=== PATIENT | male | born 1960 | race Caucasian/White ===

== ENCOUNTER 2021-04-05 13:36 | Inpatient (IN) | payer OTHER, SELFPAY ==
--- NOTE | ~2021-04-05 | XR_ITS ---
EXAMINATION: XR abdomen/kub 1V EXAM DATE: 04/06/2021 05:42 INDICATION: Small-bowel obstruction, nasogastric tube. TECHNIQUE: Frontal projection(s) of the abdomen for interpretation. Comparison is made to prior exami nation from 04/05/2021. FINDINGS: Feeding tube tip projects over gastric bubble, side-port at the gastroesophageal junction. This could be safely advanced 5 cm. Some contrast within the bladder from yesterday's CT. Several mil dly dilated air-filled small bowel loops, low-grade obstruction or ileus. There is no organomegaly. T here are no osseous abnormalities identified. Lung bases unremarkable. IMPRESSION: 1. Several mildly dilated small bowel loops, ileus or partial obstruction. 2. Feeding tube tip in stomach, but could be safely advanced 5 cm. Reviewed, dictated and finalized at location A.
--- NOTE | ~2021-04-05 | XR_ITS ---
XR abdomen NG/feed tube insert DATE: 04/05/2021 21:37 INDICATION: Nasogastric tube insertion. Partial small bowel obstruction. TECHNIQUE: Portable upright AP view of the upper abdomen COMPARISON: None FINDINGS: There is a nasogastric tube in the body of the stomach, proximal side-port approximately 2. 3 cm distal to the diaphragmatic hiatus. Bilateral renal excretion of contrast material. IMPRESSION: NG tube in body of stomach, proximal port 2.3 cm distal to the diaphragmatic hiatus Reviewed, dictated and finalized at [facility]. Reviewed, dictated and finalized at location A. IMPRESSION: NG tube in body of stomach, proximal port 2.3 cm distal to the diap hragmatic hiatus
--- NOTE | ~2021-04-05 | CT_ITS ---
EXAMINATION: CT abdomen pelvis w con DATE: 04/05/2021 19:41 INDICATION: Generalized abdominal pain since yesterday. TECHNIQUE: Computed tomography (CT) of the abdomen and pelvis was performed with 100 cc Omnipaque 350 intravenous contrast. Automated exposure control and iterative reconstruction technique were employe d. Exam dose: 663.85 mGy-cm total exam DLP. COMPARISON: None. FINDINGS: There is minimal dependent atelectasis at the lower lobes. Normal heart size. No pericardia l or pleural effusion. Very small sliding hiatal hernia. Nonspecific 1.5 cm anterior medial segment left hepatic hypoattenuating lesion; diffusion diagnosis i ncludes hemangioma, less likely cysts or malignancy. The liver is otherwise unremarkable. The gallbladder is present. Cannot exclude small dependent gallstone or gallstones. No gallbladder wa ll thickening or pericholecystic fluid or fat stranding. No bile duct or pancreatic duct dilatation. No pancreatic mass lesion or calcification. The adrenal glands are normal. 9 mm exophytic upper pole right renal cyst. 4 mm mid right renal cyst. 3.5 mm nonobstructing upper pole right renal calculus. No left urinary tract calculus or right ureteral calculus or hydronephrosis of either kidney. Prostate calcifications. The urinary bladder is unremarkable. Normal caliber of the abdominal aorta. No intraperitoneal or retroperitoneal or pelvic mass lesion or adenopathy or ascites. There is circumferential soft tissue thickening of the distal gastric antrum with luminal narrowing. Gastric carcinoma is not excluded. Consider upper gastrointestinal series or upper endoscopy. There is small bowel dilatation, measuring up to 4.2 cm diameter, with multiple small bowel air-fluid levels. There is a transition zone in the left lower quadrant. There are multiple diverticula of left and right colon; no CT evidence of diverticulitis. There is evidence of appendectomy. IMPRESSION: Partial small bowel obstruction, left lower quadrant, with dilated small bowel up to 4.2 cm diameter, multiple small bowel air-fluid levels Circumferential soft tissue thickening of the distal gastric antrum; gastric carcinoma is not exclude d. Consider upper gastrointestinal series or upper endoscopy Diverticulosis of the colon; no CT evidence of diverticulitis 1.5 cm in nonspecific medial segment left hepatic lesion Right renal cysts 3.5 mm nonobstructing upper pole right renal calculus Reviewed, dictated and finalized at [facility]. Reviewed, dictated and finalized at location A. IMPRESSION: Partial small bowel obstruction, left lower quadrant, with dilated small bowel up to 4.2 cm diameter, multiple small bowel air-fluid levels Circumferential soft tissue thickening of the distal gastric antrum; gastric ca rcinoma is not excluded. Consider upper gastrointestinal series or upper endosc opy Diverticulosis of the colon; no CT evidence of diverticulitis 1.5 cm in nonspecific medial segment left hepatic lesion Right renal cysts 3.5 mm nonobstructing upper pole right renal calculus
--- NOTE | ~2021-04-05 | XR_ITS ---
EXAMINATION: XR sm bowel follow through WS EXAM DATE: 04/06/2021 14:41 INDICATION: Dilated small bowel, obstruction on CT. Patient had a bowel movement . TECHNIQUE: Academic Interventionist radiograph was acquired. Omnipaque/water soluble solution administered for small santino wel exam performed by radiologist Tigre Ho M.D.. Pulsed dose reduction fluoroscopy was used with fluoroscopic time of 0.0. A total of 9 images obtained for the exam. Correlation is made to CT abdom en pelvis from 04/05. FINDINGS: There is a large duodenal diverticulum. Ileal and jejunal fold patterns are normal. There is no small bowel wall thickening or mass effect displacing small bowel. On some of the images some t emporary dilation of small bowel loops, probably mild ileus. There are no intraluminal filling defect s identified. Contrast reached the colon on the 1.5 hour image, contrast was seen to the sigmoid. IMPRESSION: 1. Several transient mildly dilated small bowel loops probably ileus. Normal transit time 1.5 hours. 2. Large duodenal diverticulum. Reviewed, dictated and finalized at location A. IMPRESSION: 1. Several transient mildly dilated small bowel loops probably ileus. Normal tr ansit time 1.5 hours. 2. Large duodenal diverticulum.
[2021-04-05 14:00] VITALS: BP 136/97; PULSE 106; RESP 12; TEMP 36.6; O2SAT 99
[2021-04-05 14:24] LABS: Basophils Percent Auto 0.2 % (0.2-1.2); Eosinophils Percent Auto 0.1 % (0-4.4); Immature Granulocyte Absolute 0.04 K/mm3 (0.00-0.031); Immature Granulocyte Percent A 0.3 % (0-0.5); Lymphocytes Absolute Auto 0.82 K/mm3 (0.9-3.2); Mean Corpuscular HGB Conc 32.6 g/dl (32-36); Mean Corpuscular Hemoglobin 27.3 pg (26-34); Mean Corpuscular Volume 83.8 fl (80-100); Mean Platelet Volume 9.6 fl (7.4-10.4); Monocytes Absolute Auto 0.8 K/mm3 (0.1-0.6); Monocytes Percent Auto 6.4 % (2.6-8.5); Platelet Count Result 316 k/mm3 (150-375); Red Blood Count 5.49 M/mm3 (4.6-6.20); Red Cell Distribution Width 14.4 % (11.5-14.5); White Blood Count 11.7 K/mm3 (4.5-10.0)
[2021-04-05 14:37] LABS: Add Urine Microscopic? YES; Appearance Urine Clear (Clear); Bilirubin Urine Negative (Negative); Blood Urine Negative (Negative); Color Urine Yellow (Yellow); Glucose Urine UA Negative (Negative); Ketones Urine Trace mg/dL (Negative); Leukocyte Esterase Ur Negative LEU/UL (Negative); Nitrate Urine Negative (Negative); Protein Urine 2+ mg/dL (Negative); RBC Urine 0-2 /hpf (0-2); Specific Grav Ur 1.028 (1.001-1.035); Urobilinogen Urine Negative mg/dL (<2.0); WBC Urine 0-3 /hpf
[2021-04-05 15:09] LABS: Alanine Aminotransferase 26 U/L (4-50); Alkaline Phosphatase 139 U/L (38-126); Anion Gap 13 mmol/L (8-16); Aspartate Amino Transferase 39 U/L (17-59); Bilirubin,Total 0.6 mg/dL (0.2-1.3); Blood Urea Nitrogen 21 mg/dL (9-20); Carbon Dioxide 25 mmol/L (22-30); Chloride 100 mmol/L (98-107); Estimated CRCL calculation 65 ml/min; Estimated Glomerular Filt Rate > 60; Glucose 124 mg/dL (65-110); Lipase 95 U/L (23-300); Potassium 4.6 mmol/L (3.4-5.0); Sodium 138 mmol/L (137-145)
[2021-04-05 16:44] VITALS: BP 141/97; PULSE 84; RESP 18; TEMP 36.5; O2SAT 99
[2021-04-05 17:28] VITALS: PULSE 95; RESP 18; O2SAT 100
--- NOTE | 2021-04-05 17:28 | ED.ABDPAIN ---
HPI - Abdominal Pain General Chief Complaint: Abdominal Pain Stated Complaint: abd pain Time Seen by Provider: 04/05/21 17:27 Source: patient Mode of arrival: ambulatory Limitations: no limitations History of Present Illness HPI narrative: Patient is a 61 yo male with a history of questionable Crohn's disease who presents for evaluation of LLQ abdominal pain. Pain is severe in nature located mostly in his left lower abdomen. He reports nausea with episodes of nonbilious, non bloody emesis earlier this morning. He also reports some loose stool and blood present in the stool which is bright red in nature. Pt has felt bloated. He denies fever or chills. Denies chest pain or dyspnea. Patient reports history of bowel resection and obstruction in the past (). Patient used to follow with Dr. Lr, but has not seen anyone since 2013. Related Data Home Medications Medication Instructions Recorded Confirmed No Home Medications 04/05/21 04/05/21 Allergies Allergy/AdvReac Type Severity Reaction Status Date / Time No Known Drug Allergies Allergy Unknown Verified 04/05/21 17:33 Review of Systems Review of Systems: CONSTITUTIONAL: Denies fever, chills, or sweats. EYES: Denies visual changes, redness, or discharge. ENT: Denies rhinorrhea, congestion, sore throat, or otalgia. CARDIOVASCULAR: Denies chest pain RESPIRATORY: Denies cough or dyspnea. GASTROINTESTINAL: Reports abdominal pain, nausea and vomiting, also reports diarrhea GENITOURINARY: Denies dysuria or hematuria. SKIN: Denies rash or itching. MUSCULOSKELETAL: Denies back pain, joint pain, or myalgia. NEUROLOGIC: Denies headache, numbness, or weakness. [facility] Past Medical History Medical History (Updated 04/05/21 @ 20:53 by Lisy Schwartz MD) Crohn's disease Epistaxis Surgical History Surgical History History of bowel resection Family History Family History Mother Hypertension Family history of chronic obstructive pulmonary disease Father Family history of alcoholism Grandparent Cerebrovascular accident Family history of coronary artery disease Other Family history of lung cancer Family history of throat cancer Social History Social History Smoking status: Never smoker Alcohol intake: current Exam Narrative: GENERAL: Awake, alert, conversant HEAD: Normocephalic, atraumatic. EYES: PERRLA and EOMI. ENT: Nares clear, no rhinorrhea or epistaxis. Mucous membranes moist. NECK: Supple. CHEST: No respiratory distress, breathing even and non labored HEART: Regular rate, sinus rhythm ABDOMEN:Mild distension, bowel sounds decreased, tender in LLQ without rebound or guarding EXTREMITIES: Normal range of motion. No edema. SKIN: Warm, dry, no rash. NEURO:No focal deficits. Alert and oriented x3 Course Vital Signs Vital signs: Vital Signs Temperature 36.6 C 04/05/21 14:00 Pulse Rate 106 H 04/05/21 14:00 Respiratory Rate 12 04/05/21 14:00 Blood Pressure 136/97 H 04/05/21 14:00 Pulse Oximetry 99 04/05/21 14:00 Temperature 36.5 C 04/05/21 16:44 Pulse Rate 91 04/05/21 18:48 Respiratory Rate 15 04/05/21 18:48 Blood Pressure 149/97 H 04/05/21 18:48 Pulse Oximetry 100 04/05/21 18:48 MDM - Abdominal Pain MDM Narrative Medical decision making narrative: Patient presenting for evaluation of abdominal distention, pain and nausea as well as vomiting. At the time of assessment, patient is mildly tachycardic. Patient with mild distention and left lower quadrant tenderness on exam. IV access obtained and labs are drawn. Patient with a leukocytosis without lactic acidosis. No anemia. No significant electrolyte derangement. CT scan consistent with partial small bowel obstruction with nonspecific thickening in the gastric antrum. I did discuss the
[2021-04-05] MEDS: ONDANSETRON INJ 4 MG/2 ML VIAL IV PUSH ×2 (17:40→23:10)
[2021-04-05] MEDS: SODIUM CHLORIDE 0.9% IV 1,000 ML 999 ML IV CONT (17:40)
[2021-04-05] MEDS: MORPHINE SULFATE (*CRX) 4 MG/ML INJ IV PUSH ×2 (17:40→23:09)
[2021-04-05 18:13] LABS: Lactic Acid Reflex 1.9 mmol/L (0.7-2.1)
[2021-04-05 18:48] VITALS: BP 149/97; PULSE 91; RESP 15; O2SAT 100
[2021-04-05 22:15] VITALS: BP 144/96; PULSE 90; RESP 17; TEMP 36.6; O2SAT 97; BMI 26.1
--- NOTE | 2021-04-05 22:35 | ADMGEN ---
This patient, Dl Lee, was admitted to Medical Room 241-01. Patient/family oriented to hospital policies and general routines including ID bracelet, bed and alarms, visiting hours, pain management, procedures, bathroom and other care routines, personal items, smoking policy, room service/diet, and visiting hours. Information on how to activate the Rapid Response Team has been discussed. Patient/Family are encouraged to report perceived risks to care and to ask questions if they do not understand what they are told or what they should do.
[2021-04-05] MEDS: SODIUM CHLORIDE 0.9% IV 1,000 ML 125 ML IV CONT (23:10)
--- NOTE | 2021-04-06 04:30 | PM.IMHP ---
H&P: HPI History of Present Illness Date/Time: 04/06/21 00:50 Chief Complaint: Abdominal pain Narrative: 61-year-old male with past medical history of prior small-bowel obstruction 1982 possibly due to Crohn's disease treated with partial right hemicolectomy with complicated operative course requiring multiple surgeries who has otherwise been healthy since that time presented to the ER with abdominal pain that started around midnight on 04/04/2021. He reported that he had eaten a new crock pot meal with some vegetables that were not quite as well done as a should have been. He woke up several hours later he had generalized abdominal pain with abdominal distension. His abdominal pain and distension continued to worsen throughout the course of the day despite essentially being NPO. His pain was aching and cramping in nature. It did wax and wane somewhat. His abdominal pain accompanied by the sensation that he needed to have a bowel movement. He will go to bathroom and sit in only would pass a small amount of stool. He usually has fast colonic transit due to his resection of his ileocecal valve and takes Imodium daily. He has not had to take Imodium since the morning of the . If you are hours after onset of symptoms he began having nausea with a few episodes of emesis of gastric acid. He denies any bilious emesis. He had significant amount of dry heaves. When he was having have a bowel movement he did have some episodes of chills with cold sweats. He did feel lightheaded but did not have any syncope. He reports that his abdominal pain is generalized and achy. It is worse with palpation and the most severe pain is in the left lower quadrant with palpation. He reports that his abdomen is always more protuberant on the left side ever since he had his abdominal surgeries in 1982. He has never had another bowel obstruction until today. He has not had any measured fevers. He denies any hematochezia or melena. He does have prominent hemorrhoids that are unchanged from baseline. Denies any hematemesis or coffee-ground emesis. He usually has 1 bowel movement a day since he started taking Imodium 1 tablet daily about 13 years ago. When he initially had his bowel obstruction in 1982 the pathologist interpreted the sample as consistent with Crohn's disease. The patient evidently had dehiscence of his anastomosis and developed peritonitis. He was subsequent transferred from [facility] up to [place] for more advanced care. When his pathology result were reviewed in [place] they felt his findings were more consistent with an acute infectious process that caused his initial small-bowel obstruction and that Crohn's disease was less likely. 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 After about 6 months is ileostomy and fistula were reversed with recurrence anastomosis. He later had colonoscopy in 2012 that did not demonstrate any evidence of inflammatory bowel disease. Review of Systems Review of Systems: 12 systems were reviewed with pertinent positives and negatives per HPI. Except as documented in the HPI, all other systems were reviewed and are negative. [facility] Past Medical History Medical History (Updated 04/06/21 @ 04:46 by Pilar Melendez DO) Chronic diarrhea Due to ileo colic bowel resection Crohn's disease Possible Crohn's disease verses acute infectious ileitis a cause small-bowel obstruction 1982. No recurrence of bowel symptoms since the . Epistaxis Surgical History Surgical History (Updated 04/06/21 @ 04:46 by Pilar Melendez DO) History of bowel resection (~1982) History of repair of anterior cruciate ligament of left knee Family History Family History Mother Hypertension Family history of chronic obstructive pulmonary disease Father Family history of alcoholism Grandparent Cerebrovascular accident Family history of coron
[2021-04-06 05:02] VITALS: BP 150/88; PULSE 81; RESP 18; TEMP 36.4; O2SAT 97
[2021-04-06] MEDS: ONDANSETRON INJ 4 MG/2 ML VIAL IV PUSH (08:38)
[2021-04-06] MEDS: SODIUM CHLORIDE 0.9% IV 1,000 ML 125 ML IV CONT (08:38)
[2021-04-06] MEDS: MORPHINE SULFATE (*CRX) 4 MG/ML INJ IV PUSH (09:52)
[2021-04-06 10:24] LABS: Anion Gap 5 mmol/L (8-16); Blood Urea Nitrogen 21 mg/dL (9-20); Calcium 8.4 mg/dL (8.4-10.2); Carbon Dioxide 27 mmol/L (22-30); Chloride 108 mmol/L (98-107); Estimated CRCL calculation 70 ml/min; Estimated Glomerular Filt Rate > 60; Glucose 97 mg/dL (65-110); Potassium 4.6 mmol/L (3.4-5.0); Sodium 140 mmol/L (137-145)
[2021-04-06] MEDS: IBUPROFEN IV 800 MG/200 ML 800 MG/200 ML BAG 400 MG IVPB (13:11)
[2021-04-06 14:00] VITALS: BP 143/76; PULSE 90; RESP 18; TEMP 36.6; O2SAT 96
--- NOTE | 2021-04-06 15:39 | PM.IMPN ---
Progress Note: A&P Assessment and Plan (1) Partial small bowel obstruction: Code(s): K56.600 - Partial intestinal obstruction, unspecified as to cause Status: Acute Assessment and Plan: Patient small-bowel follow-through had a normal transit time and the patient is having bowel sounds and bowel movements and no further abdominal pain -will notify surgery and see if we can remove the NG tube and start clear liquids tonight -advance diet as tolerated -continue p.r.n. pain medications IV as needed Time Spent With Patient Time with patient: 25 - 35 minutes Subjective Date/time seen: 04/06/21 15:39 Interval history: Pt is a benign old male for small bowel obstruction. Patient was seen today after his exam and is doing great. He has had multiple bowel movements and no further nausea, vomiting or abdominal pain. He would really like the NG tube out. He had a headache this morning which resolved with the IV ibuprofen. Suspect this is likely due to caffeine withdrawal. No other complaints. Review of Systems Review of Systems: All systems reviewed & are unremarkable except as noted in HPI and below Exam Narrative: General: Well developed well nourished patient in NAD HEENT: normocephalic, NG intact Neck: supple Neuro: Alert and oriented x4 CV:RRR Resp:CTA Abd: Soft, non distended. No pain to palpation. Positive bowel sounds Extremities: No swelling, erythema, or pain to palpation. Objective Data Vital Signs Vital Signs: Vital Signs - 24 hr 04/05/21 16:44 04/05/21 17:28 04/05/21 18:48 Temperature 97.7 F Pulse Rate 84 95 91 Respiratory Rate 18 18 15 Blood Pressure 141/97 H 149/97 H Pulse Oximetry 99 100 100 04/05/21 22:15 04/06/21 05:02 04/06/21 14:00 Temperature 97.8 F 97.6 F 97.9 F Pulse Rate 90 81 90 Respiratory Rate 17 18 18 Blood Pressure 144/96 H 150/88 H 143/76 H Pulse Oximetry 97 97 96 Intake/Output Intake/Output: Intake & Output 04/03/21 04/04/21 04/05/21 04/06/21 23:59 23:59 23:59 23:59 Intake Total 1000 1300 Output Total 200 Balance 1000 1100 Meds/Results Medications: Active Medications Generic Name Dose Route Start Last Admin Trade Name Freq PRN Reason Stop Dose Admin Sodium Chloride 1,000 mls @ 125 mls/hr 04/05/21 20:55 04/06/21 13:11 Normal Saline Iv IV CONT Not Given .Q8H JUAN Ibuprofen 800 mg in 200 mls @ 400 mls/hr 04/06/21 09:55 04/06/21 13:41 Caldolor 800 Mg/200 Ml IVPB Infused Q6H PRN Infusion uncontrolled pain or headache Acetaminophen 1,000 mg in 100 mls @ 400 mls/hr 04/06/21 09:56 Ofirmev 1,000 Mg Ivpb IVPB 04/07/21 04:55 Q6H PRN Pain Rated 1-6 Morphine Sulfate 4 mg 04/05/21 20:53 04/06/21 09:52 Morphine Sulfate (*Crx) 4 Mg/Ml Inj IV PUSH 4 mg Q2H PRN Administration Pain Rated 7-10 Ondansetron HCl 4 mg 04/05/21 20:53 04/06/21 08:38 Ondansetron Inj 4 Mg/2 Ml Vial IV PUSH 4 mg Q4H PRN Administration Nausea Radiology Results: ITS Impressions Abdomen/Pelvis CT 04/05/21 19:45 IMPRESSION: Partial small bowel obstruction, left lower quadrant, with dilated small bowel up to 4.2 cm diameter, multiple small bowel air-fluid levels Circumferential soft tissue thickening of the distal gastric antrum; gastric carcinoma is not excluded. Consider upper gastrointestinal series or upper endoscopy Diverticulosis of the colon; no CT evidence of diverticulitis 1.5 cm in nonspecific medial segment left hepatic lesion Right renal cysts 3.5 mm nonobstructing upper pole right renal calculus Abdomen X-Ray 04/06/21 06:32 IMPRESSION: 1. Several mildly dilated small bowel loops, ileus or partial obstruction. 2. Feeding tube tip in stomach, but could be safely advanced 5 cm. Small Bowel X-Ray 04/06/21 14:43 IMPRESSION: 1. Several transient mildly dilated small bowel loops probably ileus. Normal transit time 1.5 hours. 2. Large duodenal
--- NOTE | 2021-04-06 16:17 | PM.CNGS ---
Assessment and Plan Assessment and plan (1) Partial small bowel obstruction: Code(s): K56.600 - Partial intestinal obstruction, unspecified as to cause Status: Acute Assessment and Plan: Improving with conservative measures. Recommend continue NG tube IV fluids and p.r.n. analgesics. If doing well again tomorrow will get Gastrografin upper GI small-bowel follow-through per NG tube. With his marked improvement, I am very hopeful he will resolve without requiring laparotomy. I discussed this with him. I will follow along. I also discussed with him the need for follow-up endoscopy due to the abnormal findings on CT scan of his distal stomach. History of Present Illness Consult details Consult date: 04/06/21 Reason for consult: abdominal pain (Small bowel obstruction) Requesting physician: Lisy Schwartz MD Narrative: Patient is a 61-year-old man who presented to the emergency room with left lower quadrant pain nausea and vomiting. This pain started at midnight April 04. He had some bloating and loose stools. Some of the stools had bright red blood. His last normal bowel movement was in the morning of April 03. In the emergency room the patient was noted to have tenderness in the left lower quadrant and some mild abdominal distention. His heart rate was 106 but he had no fever. Blood pressure was stable[place] [id number]. CT scan of the abdomen pelvis was done and showed evidence of a small-bowel obstruction with a transition point in the left lower quadrant. Also no worthy was the stomach had a very thickened distal antrum. The gastric findings were recommended to be followed up with either endoscopy or upper GI to evaluate for malignancy or other disease. Patient had a nasogastric tube placed and was admitted. He received analgesics and IV fluids. I saw him in the morning about 630 on April 06. He was feeling quite a bit better with the pain gone. He had not had any bowel movement or passed any gas. He did, however, feel much better. He has a significant past medical history in that in 1982 he had an ileocolic resection. He had an anastomotic leak and was transferred to another hospital. He had more surgery due to the anastomotic leak and developed an enterocutaneous fistula. Eventually this healed and no additional abdominal problems have developed. He has never had a hernia repair. He had a questionable diagnosis of Crohn's disease at the time of his resection but apparently this was not borne out by subsequent evaluation of the pathologic specimen. He has had no evidence of Crohn's disease since that original surgery either. Review of Systems Review of Systems: All systems reviewed & are unremarkable except as noted in HPI and below Constitutional: Constitutional: Denies chills and Denies fever(s) Cardiovascular: Cardiovascular: Denies chest pain, Denies diaphoresis, Denies dyspnea and Denies paroxysmal nocturnal dyspnea Respiratory: Respiratory: Denies chest congestion, Denies cough and Denies dyspnea Integumentary/Breasts: Skin/Breast: Denies lesions and Denies rash PMFSH Past Medical History Medical History Chronic diarrhea Due to ileo colic bowel resection Crohn's disease Possible Crohn's disease verses acute infectious ileitis a cause small-bowel obstruction 1982. No recurrence of bowel symptoms since the . Epistaxis Surgical History Surgical History History of bowel resection (~1982) History of repair of anterior cruciate ligament of left knee Family History Family History Mother Hypertension Family history of chronic obstructive pulmonary disease Father Family history of alcoholism Grandparent Cerebrovascular accident Family history of coronary artery disease Other Family history of lung canc
--- NOTE | 2021-04-06 17:50 | WPDGICN ---
Assessment and Plan Assessment and plan (1) Partial small bowel obstruction: Code(s): K56.600 - Partial intestinal obstruction, unspecified as to cause Status: Acute Assessment and Plan: responding to medical treatment, had abdominal surgeries but years ago and he has been asymptomatic for long time and apparently finally was told that did not have Crohn's (never had been treated for ibd) surgery on board he is also due to have a colonoscopy which we can perform in few more weeks after fully recovered from episode (also with egd given abnormal ct scan finding) (2) Abnormal CT scan, gastrointestinal tract: Code(s): R93.3 - Abnormal findings on diagnostic imaging of other parts of digestive tract Status: Acute Assessment and Plan: he also will need to have EGD given abnormal antrum denies dysphagia or nausea besides this episode (3) History of bowel resection: Onset Date: ~1982 Code(s): Z90.49 - Acquired absence of other specified parts of digestive tract Status: Acute (4) Nausea and vomiting in adult: Code(s): R11.2 - Nausea with vomiting, unspecified Status: Acute Assessment and Plan: better after ngt placement (5) Abdominal pain: Code(s): R10.9 - Unspecified abdominal pain Status: Acute GI Consult Note Consult date/time: 04/06/21 17:50 Reason for consult: SBO HPI: Dl Lee is a 61 year old male with history of prior small-bowel obstruction 1982 initially thought related to Crohn's disease but apparently pathology report revised and told that IBD was unlikely. 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 He had a colonoscopy about 9 years ago that was lisa. He is here with new onset of abdominal pain and bloating after eating new crock pot meal with some raw vegetables. Pain worsened and could not have a bowel movement. 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 Then also associated nausea and dry heaving. ER evaluation revealed SBO, placed NGT and now he is feeling better, passing gas again and less tender. CT scan reviewed, showed partial small bowel obstruction, left lower quadrant, with dilated small bowel up to 4.2 cm diameter, multiple small bowel air-fluid level, circumferential soft tissue thickening of the distal gastric antrum, diverticulosis of the colon; no CT evidence of diverticulitis Review of Systems Constitutional: Constitutional: Denies chills Eyes: Eyes: Denies blurry vision ENT: Reports Normal hearing present Cardiovascular: Cardiovascular: Denies chest pain Respiratory: Respiratory: Denies dyspnea Gastrointestinal: Gastrointestinal: Reports abdominal pain, Reports nausea and Reports vomiting Genitourinary: Genitourinary: Denies dysuria Musculoskeletal: Musculoskeletal: Denies neck pain Integumentary/Breasts: Skin/Breast: Denies dry skin Neurologic: Denies headache(s) Psychiatric: Psychiatric: Reports no additional psychiatric complaints [facility] Past Medical History Medical History (Updated 04/06/21 @ 18:00 by Miguelito Delcid MD) Abdominal pain Abnormal CT scan, gastrointestinal tract Chronic diarrhea Due to ileo colic bowel resection Crohn's disease Possible Crohn's disease verses acute infectious ileitis a cause small-bowel obstruction 1982. No recurrence of bowel symptoms since the . Epistaxis Nausea and vomiting in adult Surgical History Surgical History History of bowel resection (~1982) History of repair of anterior cruciate ligament of left knee Family History Family History Mother Hypertension Family history of chronic obstructive pulmonary di
[2021-04-06] MEDS: SODIUM CHLORIDE 0.9% IV 1,000 ML 75 ML IV CONT (21:10)
[2021-04-06 22:00] VITALS: BP 140/88; PULSE 73; RESP 17; TEMP 36.3; O2SAT 100
[2021-04-07 04:07] VITALS: BP 140/82; PULSE 74; RESP 16; TEMP 36.3; O2SAT 100
[2021-04-07 05:57] LABS: Basophils Percent Auto 0.5 % (0.2-1.2); Eosinophils Absolute Auto 0.3 K/mm3 (0-0.3); Eosinophils Percent Auto 4.7 % (0-4.4); Hematocrit 38.4 % (42.0-52.0); Hemoglobin 12.1 g/dL (14.0-18.0); Immature Granulocyte Absolute 0.01 K/mm3 (0.00-0.031); Immature Granulocyte Percent A 0.2 % (0-0.5); Lymphocytes Absolute Auto 1.47 K/mm3 (0.9-3.2); Lymphocytes Percent Auto 25.4 % (18.3-44.2); Mean Corpuscular HGB Conc 31.5 g/dl (32-36); Mean Corpuscular Hemoglobin 27.6 pg (26-34); Mean Corpuscular Volume 87.7 fl (80-100); Mean Platelet Volume 10.1 fl (7.4-10.4); Monocytes Absolute Auto 0.6 K/mm3 (0.1-0.6); Monocytes Percent Auto 10.2 % (2.6-8.5); Neutrophils Absolute Auto 3.4 K/mm3 (1.3-6.7); Platelet Count Result 216 k/mm3 (150-375); Red Blood Count 4.38 M/mm3 (4.6-6.20); Red Cell Distribution Width 14.6 % (11.5-14.5); White Blood Count 5.8 K/mm3 (4.5-10.0)
[2021-04-07 06:13] LABS: Anion Gap 5 mmol/L (8-16); Blood Urea Nitrogen 16 mg/dL (9-20); Calcium 8.2 mg/dL (8.4-10.2); Carbon Dioxide 27 mmol/L (22-30); Chloride 103 mmol/L (98-107); Estimated CRCL calculation 77 ml/min; Estimated Glomerular Filt Rate > 60; Glucose 117 mg/dL (65-110); Potassium 3.8 mmol/L (3.4-5.0); Sodium 135 mmol/L (137-145)
--- NOTE | 2021-04-07 08:10 | PM.PNGS ---
Progress Note: A&P Assessment and Plan (1) Partial small bowel obstruction: Code(s): K56.600 - Partial intestinal obstruction, unspecified as to cause Status: Resolved Assessment and Plan: would continue low-fiber diet for a week. Then can go back to regular diet. No need for surgical follow-up. Patient can follow up with his primary care doctor. Activity as tolerated. Okay to discharge. (2) Abnormal CT scan, gastrointestinal tract: Code(s): R93.3 - Abnormal findings on diagnostic imaging of other parts of digestive tract Status: Chronic Assessment and Plan: Will need follow-up EGD with Dr. Spaulding. Subjective Subjective Date/Time Seen: 04/07/21 08:10 Patient reports: pain is less ( No recurrence of abdominal pain through the night), bowel movement ( multiple bowel movements) and afebrile Review of Systems Review of Systems: All systems reviewed & are unremarkable except as noted in HPI and below Constitutional: Constitutional: Denies anorexia, Denies chills, Denies fever(s), Denies headache(s) and Reports increased appetite Gastrointestinal: Gastrointestinal: Reports as per HPI, Denies abdominal pain, Denies bloating, Reports diarrhea ( Normal for him), Denies nausea and Denies vomiting Neurologic: Denies confusion and Denies headache(s) Exam Const: General: comfortable and no acute distress; No confusion Orientation/consciousness: patient oriented x3 and No confusion GI: Inspection: non-distended and scar GI Palp: Yes Soft to palpation, Yes Tenderness to palpation present (GI) ( slight left lower quadrant tenderness, no guarding or rebound), No Guarding due to palpation present (GI), No Palpable mass present and No Rebound tenderness present Auscultation: normal bowel sounds Neuro: General: patient oriented x3, no focal motor deficits and No confusion Extrem: General: no calf tenderness and no edema Psych: Affect: normal affect Insight: Good insight present (Psych) Judgement: Good judgement present (Psych) Objective Data Vital Signs Vital Signs: Vital Signs - 24 hr 04/06/21 14:00 04/06/21 22:00 04/07/21 04:07 Temperature 36.6 C 36.3 C L 36.3 C L Pulse Rate 90 73 74 Respiratory Rate 18 17 16 Blood Pressure 143/76 H 140/88 140/82 Pulse Oximetry 96 100 100 Intake/Output Intake/Output: Intake & Output 04/04/21 04/05/21 04/06/21 04/07/21 23:59 23:59 23:59 23:59 Intake Total 1000 2640 200 Output Total 450 Balance 1000 2190 200 Meds/Results Medications: Active Medications Generic Name Dose Route Start Last Admin Trade Name Freq PRN Reason Stop Dose Admin Ibuprofen 800 mg in 200 mls @ 400 mls/hr 04/06/21 09:55 04/06/21 13:41 Caldolor 800 Mg/200 Ml IVPB Infused Q6H PRN Infusion uncontrolled pain or headache Sodium Chloride 1,000 mls @ 75 mls/hr 04/06/21 21:05 04/06/21 21:10 Normal Saline Iv IV CONT 75 mls/hr .[id number] JUAN Administration Morphine Sulfate 4 mg 04/05/21 20:53 04/06/21 09:52 Morphine Sulfate (*Crx) 4 Mg/Ml Inj IV PUSH 4 mg Q2H PRN Administration Pain Rated 7-10 Ondansetron HCl 4 mg 04/05/21 20:53 04/06/21 08:38 Ondansetron Inj 4 Mg/2 Ml Vial IV PUSH 4 mg Q4H PRN Administration Nausea Radiology Results: ITS Impressions Abdomen/Pelvis CT 04/05/21 19:45 IMPRESSION: Partial small bowel obstruction, left lower quadrant, with dilated small bowel up to 4.2 cm diameter, multiple small bowel air-fluid levels Circumferential soft tissue thickening of the distal gastric antrum; gastric carcinoma is not excluded. Consider upper gastrointestinal series or upper endoscopy Diverticulosis of the colon; no CT evidence of diverticulitis 1.5 cm in nonspecific medial segment left hepatic lesion Right renal cysts 3.5 mm nonobstructing upper pole right renal calculus Abdomen X-Ray 04/06/21 06:32 IMPRESSION: 1. Several mildly dilated small bowel loops, ileus
[2021-04-07] MEDS: SODIUM CHLORIDE 0.9% IV 1,000 ML 75 ML IV CONT (09:19)
[2021-04-07 14:00] VITALS: BP 119/73; PULSE 89; RESP 16; TEMP 36.6; O2SAT 100
--- NOTE | 2021-04-07 14:37 | WPDGIPROGNO ---
Progress Note: A&P Assessment and Plan (1) Partial small bowel obstruction: Code(s): K56.600 - Partial intestinal obstruction, unspecified as to cause Status: Resolved Assessment and Plan: resolved, tolerating diet he can go home will set up egd and colonoscopy as outpatient (apparently he did not have Crohn's after path was reviewed again years ago but he is also due to have another colonoscopy) (2) Nausea and vomiting in adult: Code(s): R11.2 - Nausea with vomiting, unspecified Status: Acute (3) Abnormal CT scan, gastrointestinal tract: Code(s): R93.3 - Abnormal findings on diagnostic imaging of other parts of digestive tract Status: Chronic Assessment and Plan: noted abnormal antrum by CT scan denies any dysphagia, weight loss but will do EGD as outpatient (4) History of bowel resection: Onset Date: ~1982 Code(s): Z90.49 - Acquired absence of other specified parts of digestive tract Status: Acute Subjective Date/time seen: 04/07/21 14:37 Interval history: he is feeling better, NGT removed and tolerating diet, also passing gas, abdominal pain almost gone. Review of Systems Review of Systems: All systems reviewed & are unremarkable except as noted in HPI and below Exam Const: General: comfortable and no acute distress HENMT: General nose exam: Normal nares present Eyes: General: appearance normal, both eyes and all related structures Neck: Neck: no JVD Resp: Auscultation: clear to auscultation bilaterally Cardio: Rate: regular rate Rhythm: regular rhythm GI: Inspection: non-distended GI Palp: Yes Soft to palpation and No Guarding due to palpation present (GI) Auscultation: normal bowel sounds Other: previous surgical scars Skin: General skin exam: normal color Neuro: General: gait normal Speech: normal speech Motor exam (neuro): Normal motor muscle tone present throughout Extrem: General: normal to inspection Psych: Mental Status: mental status grossly normal Objective Data Vital Signs Vital Signs: Vital Signs - 24 hr 04/06/21 22:00 04/07/21 04:07 Temperature 97.4 F L 97.3 F L Pulse Rate 73 74 Respiratory Rate 17 16 Blood Pressure 140/88 140/82 Pulse Oximetry 100 100 Intake/Output Intake/Output: Intake & Output 04/04/21 04/05/21 04/06/21 04/07/21 23:59 23:59 23:59 23:59 Intake Total 1000 2640 1340 Output Total 450 Balance 1000 2190 1340 Meds/Results Medications: Active Medications Generic Name Dose Route Start Last Admin Trade Name Freq PRN Reason Stop Dose Admin Ibuprofen 800 mg in 200 mls @ 400 mls/hr 04/06/21 09:55 04/06/21 13:41 Caldolor 800 Mg/200 Ml IVPB Infused Q6H PRN Infusion uncontrolled pain or headache Sodium Chloride 1,000 mls @ 75 mls/hr 04/06/21 21:05 04/07/21 09:20 Normal Saline Iv IV CONT 0 mls/hr .[id number] JUAN Infusion Morphine Sulfate 4 mg 04/05/21 20:53 04/06/21 09:52 Morphine Sulfate (*Crx) 4 Mg/Ml Inj IV PUSH 4 mg Q2H PRN Administration Pain Rated 7-10 Ondansetron HCl 4 mg 04/05/21 20:53 04/06/21 08:38 Ondansetron Inj 4 Mg/2 Ml Vial IV PUSH 4 mg Q4H PRN Administration Nausea Radiology Results: ITS Impressions Abdomen/Pelvis CT 04/05/21 19:45 IMPRESSION: Partial small bowel obstruction, left lower quadrant, with dilated small bowel up to 4.2 cm diameter, multiple small bowel air-fluid levels Circumferential soft tissue thickening of the distal gastric antrum; gastric carcinoma is not excluded. Consider upper gastrointestinal series or upper endoscopy Diverticulosis of the colon; no CT evidence of diverticulitis 1.5 cm in nonspecific medial segment left hepatic lesion Right renal cysts 3.5 mm nonobstructing upper pole right renal calculus Abdomen X-Ray 04/06/21 06:32 IMPRESSION: 1. Several mildly dilated small bowel loops, ileus or partial obstruction. 2. Feeding tube tip in stomach,
--- NOTE | 2021-04-07 14:53 | PM.DS ---
DS: Admitting Diagnosis Admitting Diagnosis LLQ Abdominal Pain, N/V, dehydration DS: Discharge Diagnosis Discharge Diagnosis (1) Partial small bowel obstruction: Code(s): K56.600 - Partial intestinal obstruction, unspecified as to cause Status: Resolved Assessment and Plan: resolved, tolerating diet he can go home will set up egd and colonoscopy as outpatient (apparently he did not have Crohn's after path was reviewed again years ago but he is also due to have another colonoscopy) D/C instructions Low-fiber diet for 1 week then resume regular diet. Stay well hydrated. Patient can follow up with his primary care doctor. Activity as tolerated. Will need follow-up with GI Dr. Spaulding in 1-14 days, then get an EGD and Colonoscopy after full recovery, to evaluate abnormal antrum. (2) Nausea and vomiting in adult: Code(s): R11.2 - Nausea with vomiting, unspecified Status: Acute Assessment and Plan: fully resolved eating and drinking well no N/V today having BMs, had one earlier this afternoon no blood and pain controlled with non-narcotics (3) Abnormal CT scan, gastrointestinal tract: Code(s): R93.3 - Abnormal findings on diagnostic imaging of other parts of digestive tract Status: Chronic Assessment and Plan: noted abnormal antrum by CT scan denies any dysphagia, weight loss but will do EGD as outpatient Will need follow-up with GI Dr. Spaulding in 1-14 days, then get an EGD and Colonoscopy after full recovery, to evaluate abnormal antrum. (4) History of bowel resection: Onset Date: ~1982 Code(s): Z90.49 - Acquired absence of other specified parts of digestive tract Status: Acute Assessment and Plan: aprox. 40 years ago in [facility] nothing recent DS: Summary Hospital Course Hospital Course: improved with NPO status, pain medications, IVFs, GI and Gen. Surgery consults, bowel rest, NG placement and decompression. Time Spent with Patient Time attestation: Total time spent providing and/or coordinating discharge services: 60 min Exam Narrative: General: Well developed well nourished patient in NAD HEENT: normocephalic, NG intact Neck: supple Neuro: Alert and oriented x4 CV:RRR Resp:CTA Abd: Soft, non distended. No pain to palpation. Positive bowel sounds Extremities: No swelling, erythema, or pain to palpation. Const: General: comfortable, no acute distress, alert and awake; No confusion Orientation/consciousness: patient oriented x3 and No confusion HENMT: Head: normocephalic and atraumatic Ears: hearing grossly normal bilaterally and external ears normal General nose exam: Normal external nose present, Normal nares present, no nasal discharge noted and no epistaxis Face and sinus: normal facial exam, face symmetric, no tenderness and dry mucous membranes Mouth: Yes Normal oral and palatal mucosa present and No tongue abnormal Eyes: General: appearance normal, both eyes and all related structures Conjunctivae: conjunctivae normal Sclera: sclerae normal Pupils: Equal, round and reactive pupils present EOM: EOMs intact bilaterally Neck: Neck: no lymphadenopathy, supple, nontender, no JVD and No submandibular swelling Thyroid: thyroid normal and nontender Lymphatic: lymphadenopathy not noted Chest: Chest palpation & inspection: mass and no tenderness Resp: Effort & Inspection: normal respiratory effort, no audible wheezes, no cough and no pursed lip breathing Auscultation: clear to auscultation bilaterally Cardio: Rate: regular rate Rhythm: regular rhythm Heart sounds: no gallops, no murmurs and no rubs GI: Inspection: normal to inspection, non-distended, scar and no visible herniation Auscultation: normal bowel sounds and Hypoactive bowel sounds present Other: previous surgical scars : General: Yes no CVA tenderness Back/Spine/Pelvis: Back: no CVA tenderness, No mass, No ecchymosis and No back tendern
== END 2021-04-07 15:46 | disposition home or self-care (01) | DRG 390 ==
LOC: ANHED 20:53 → ANH2MED 04-06 07:27
PROVIDERS: Emergency Medicine; Admitting Provider Internal Medicine; Emergency Provider Emergency Medicine; Visit Provider Physician Assistant
DX: K56.600 Partial intestinal obstruction, unspecified as to cause (principal); R93.3 Abnormal findings on diagnostic imaging of other parts of digestive tract; R11.2 Nausea with vomiting, unspecified; Z90.49 Acquired absence of other specified parts of digestive tract
CPT/HCPCS: 36415; 74018; 74177; 74250; 80048; 80053; 81001; 83605; 83690; 85025; 87040; 96361; 96374; 96375; 99285; J0131; J1741; J2270; J2405; J7030; Q9967

== ENCOUNTER 2021-05-10 01:03 | Day surgery (SDC) | payer OTHER, SELFPAY ==
[2021-05-08 10:32] VITALS: BMI 25.8
[2021-05-10 11:46] VITALS: BP 145/107; PULSE 99; TEMP 36.4; O2SAT 99
[2021-05-10] MEDS: LACTATED RINGERS 1,000 ML 150 ML IV CONT (11:51)
--- NOTE | 2021-05-10 12:06 | WPDANESEPPF ---
Anes - Initial Pre Proc Eval Procedure: Operation Date: 05/10/21 13:00 Proposed Procedures p Esophagogastroduodenoscopy & Colonoscopy - Miguelito Delcid MD Date/Time: 05/10/21 12:06 Surgeon: Miguelito Delcid MD Pre Op Diagnosis: small bowel obstruction, Abnormal CAT scan Patient Data Age: 61 Gender: M Height: 1.83 m Weight: 85.3 kg Last Vital Signs Temp 97.5 F L 05/10/21 11:46 Pulse 99 05/10/21 11:46 BP 145/107 H 05/10/21 11:46 Pulse Ox 99 05/10/21 11:46 Allergies Allergy/AdvReac Type Severity Reaction Status Date / Time No Known Allergies Allergy Verified 05/10/21 11:45 Home Medications Medication Instructions Recorded Confirmed Type loperamide 2 mg PO DAILY 04/05/21 05/08/21 History multivitamin,[id number] 1 tablet PO DAILY 04/05/21 05/08/21 History Patient hx anesthesia problems: none Family hx anesthesia problems: none Results Review: All pre-operative results and documents have been reviewed as part of the pre-operative evaluation. [facility] Past Medical History Medical History (Updated 04/07/21 @ 08:16 by Montrell Murphy MD) Abdominal pain Abnormal CT scan, gastrointestinal tract Chronic diarrhea Due to ileo colic bowel resection Crohn's disease Possible Crohn's disease verses acute infectious ileitis a cause small-bowel obstruction 1982. No recurrence of bowel symptoms since the . Epistaxis Nausea and vomiting in adult Surgical History Surgical History History of bowel resection (~1982) History of repair of anterior cruciate ligament of left knee Family History Family History Mother Hypertension Family history of chronic obstructive pulmonary disease Father Family history of alcoholism Grandparent Cerebrovascular accident Family history of coronary artery disease Other Family history of lung cancer Family history of throat cancer Social History Social History Social History: He lives in [place] with his of 30 years and their 2 teenage children. 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 He drinks alcohol occasionally in in moderation. He denies any illicit substance use. He is a lifelong nonsmoker but had heavy secondhand smoke exposure as a teen and young adult. Code status: Full code Surrogate decision maker: Primary care physician: None (he has not seen a primary care physician in 4 years) Smoking status: Never smoker Alcohol intake: current Drinks per week: 2 Substance use: never Substance use type: does not use Living arrangements: with family Spiritual care concerns: No Anes - Eval Final PreProcedure Day of Procedure 05/10/21 12:06 Patient weight: overweight Heart: regular rate and rhythm Lungs: clear to auscultation Airway: Mallampati scale class II Neurological: alert and oriented Last oral intake: >/= 8 hours ASA classification: II Emergent: no Anesthetic plan: proceed Anesthesia type and monitoring: general GIVS and standard monitoring Results Review: All pre-operative results and documents have been reviewed as part of the pre-operative evaluation. Informed Consent: The patient's anesthetic plan and its attendant risks and benefits were discussed with the patient/family/POA. Questions were solicited and answers provided to the satisfaction of the patient/family/POA.
--- NOTE | 2021-05-10 12:23 | PM.HPGS ---
History of Present Illness History of Present Illness Consent: Risks, benefits, and alternatives have been discussed and questions answered. Patient agrees to proceed with procedure. Chief complaint: small bowel obstruction, Abnormal CAT scan Narrative: Dl Lee is a 61 year old male here for egd and colonoscopy. He had remote history of SBO s/p rt hemicolectomy initially thought to be due to crohn's but apparently final path report negative and never had been on any medication for ibd. Recent hospitalization for SBO treated medically, CT scan also showed wall thickening of stomach. He is asymptomatic now. Last colonoscopy ~ 9 years ago. Review of Systems Constitutional: Constitutional: Denies headache(s) and Denies weakness Eyes: Eyes: Denies blurry vision ENT: Reports Normal hearing present, Denies headache(s) and Denies neck pain Cardiovascular: Cardiovascular: Denies chest pain and Denies dyspnea Respiratory: Respiratory: Denies dyspnea Gastrointestinal: Gastrointestinal: Reports no additional gastrointestinal complaints Genitourinary: Genitourinary: Denies dysuria Musculoskeletal: Musculoskeletal: Denies neck pain Integumentary/Breasts: Skin/Breast: Denies dry skin Neurologic: Reports Normal hearing present, Denies headache(s) and Denies weakness Psychiatric: Psychiatric: Denies anxiety Endocrine: Endocrine: Denies change in body appearance Hematologic/Lymphatic: Hematologic/Lymphatic: Denies easy bleeding Allergic/Immunologic: Allergic/Immunologic: Denies urticaria PMFSH Past Medical History Medical History (Updated 05/10/21 @ 12:25 by Miguelito Delcid MD) Abdominal pain Abnormal CT scan, gastrointestinal tract Chronic diarrhea Due to ileo colic bowel resection Colon cancer screening Crohn's disease Possible Crohn's disease verses acute infectious ileitis a cause small-bowel obstruction 1982. No recurrence of bowel symptoms since the . Epistaxis Nausea and vomiting in adult Surgical History Surgical History History of bowel resection (~1982) History of repair of anterior cruciate ligament of left knee Family History Family History Mother Hypertension Family history of chronic obstructive pulmonary disease Father Family history of alcoholism Grandparent Cerebrovascular accident Family history of coronary artery disease Other Family history of lung cancer Family history of throat cancer Social History Social History Social History: He lives in [place] with his of 30 years and their 2 teenage children. 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 He drinks alcohol occasionally in in moderation. He denies any illicit substance use. He is a lifelong nonsmoker but had heavy secondhand smoke exposure as a teen and young adult. Code status: Full code Surrogate decision maker: Primary care physician: None (he has not seen a primary care physician in 4 years) Smoking status: Never smoker Alcohol intake: current Drinks per week: 2 Substance use: never Substance use type: does not use Living arrangements: with family Spiritual care concerns: No Meds Home Medications and Allergies Home Medications Medication Instructions Recorded Confirmed Type loperamide 2 mg PO DAILY 04/05/21 05/08/21 History multivitamin,[id number] 1 tablet PO DAILY 04/05/21 05/08/21 History Allergies Allergy/AdvReac Type Severity Reaction Status Date / Time No Known Allergies Allergy Verified 05/10/21 11:45 Vital Signs Vital Signs - 24 hr 05/10/21 11:46 Temperature 97.5 F L Pulse Rate 99 Blood Pressure 145/107 H Pulse Oximetry 99 Exam Const: General: comfortable and no acute distress HENMT: Genera
--- NOTE | 2021-05-10 12:39 | SUR.OPER ---
EGD procedure end at 1235. Colonoscopy procedure started at 1239. Cecum reached at 1241.
--- NOTE | 2021-05-10 12:47 | SUR.OPER ---
EGD procedure end at 1235. Colonoscopy procedure started at 1239. Cecum reached at 1245.
[2021-05-10 12:57] VITALS: BP 115/81; PULSE 75; RESP 14; O2SAT 99
[2021-05-10 13:07] VITALS: BP 113/82; PULSE 80; RESP 16; O2SAT 100
[2021-05-10 13:17] VITALS: BP 131/98; PULSE 74; RESP 17; O2SAT 100
== END 2021-05-10 13:20 | disposition home or self-care (01) ==
PROVIDERS: Visit Provider Internal Medicine Gastroenterology
PROC: 0DJ08ZZ Inspection of Upper Intestinal Tract, Via Natural or Artificial Opening Endoscopic (ICD-10-PCS; CPT 43235; principal; 2021-05-10 13:00)
DX: Z12.11 Encounter for screening for malignant neoplasm of colon (principal); K57.30 Diverticulosis of large intestine without perforation or abscess without bleeding; K64.8 Other hemorrhoids; Z98.0 Intestinal bypass and anastomosis status; Z90.49 Acquired absence of other specified parts of digestive tract; Z87.19 Personal history of other diseases of the digestive system; R93.3 Abnormal findings on diagnostic imaging of other parts of digestive tract; R19.7 Diarrhea, unspecified
CPT/HCPCS: 45378; 43235; J2704; J7120

== ENCOUNTER 2024-08-19 08:47 | Outpatient (CLI) | payer OTHER, SELFPAY ==
[2024-08-19 13:18] LABS: Cholesterol 231 mg/dL (0-200); HDL Direct 37 mg/dL; Triglycerides 388 mg/dL (<150)
[2024-08-19 13:29] LABS: LDL Cholesterol Direct 125 mg/dL
[2024-08-19 13:41] LABS: Thyroid Stimulating Hormone Reflex 0.367 uIU/mL (0.465-4.68)
[2024-08-19 14:37] LABS: Free T4 Free Thyroxine Reflex 0.82 ng/dL (0.78-2.19)
[2024-08-19 15:58] LABS: Total Triiodothyronine (T3) 1.18 NG/ML (0.97-1.69)
== END 2024-08-19 08:48 | disposition home or self-care (01) ==
LOC: ANHGOSHLAB 08:48
PROVIDERS: PCP Nurse Practitioner Family; Visit Provider Nurse Practitioner Family
DX: E78.5 Hyperlipidemia, unspecified (principal); R03.0 Elevated blood-pressure reading, without diagnosis of hypertension; R79.89 Other specified abnormal findings of blood chemistry
CPT/HCPCS: 36415; 80061; 84439; 84443; 84480